=== PATIENT | female | born 1995 | race African-American/Black ===

== ENCOUNTER 2016-12-13 14:36 | Emergency (ER) | payer SELFPAY ==
[~2016-12-13] VITALS: Ht 152.4 cm; Wt 57.7 kg
[~2016-12-13 14:36] MED LIST: DICL75 PO
[2016-12-13 14:39] VITALS: BP 138/74; PULSE 105; RESP 15; TEMP 97.6; O2SAT 98
[2016-12-13 17:00] VITALS: PULSE 88
--- NOTE | 2016-12-13 17:03 | PD ---
HPI Chief Complaint: General Weakness Time Seen by Provider: 17:03 Travel History International Travel<30 days: No Contact w/Intl Traveler<30days: No Traveled to known affect area: No History of Present Illness HPI 21-year-old female presents to the emergency department with complaint of left thumb twitching and swelling to bilateral thenar eminences that started today. She said she felt lightheaded after eating and thought there was something wrong with her because her hands became swollen and hard to move her finger joints. Her lightheadedness has resolved. She denies focal deficits or weakness. Denies dizziness, syncope, headache. Denies fever, chills, nausea, vomiting. Denies change in vision. Denies focal deficits or weakness. Denies paresthesias, loss of sensation, decreased range of motion, decreased strength to all extremities. Denies difficulty with gait. Denies chest pain, shortness breath, abdominal pain, change in urine or stool. Has not taken any medications or tried any joints to alleviate her symptoms. Says she thinks she may be dehydrated needs to drink some Gatorade. No known allergies. Denies significant past medical history. Denies illicit drug use. No other modifying factors or associated signs and symptoms. History Past Medical Histgory LMP: NOV 2016 Social History Alcohol Use: Yes Tobacco Use: No Allergies-Medications (Allergen,Severity, Reaction): Coded Allergies: No Known Allergies (Unverified , 08/01/15) Reported Meds & Prescriptions Reported Meds & Active Scripts Active No Active Prescriptions or Reported Medications Review of Systems Except as stated in HPI: all other systems reviewed are Neg Physical Exam Narrative GENERAL: Well-nourished, well-developed female patient, in no acute distress SKIN: Warm and dry. HEAD: Atraumatic. Normocephalic. No facial droop noted. Tongue midline. EYES: Pupils equal and round at 4 mm with brisk reaction. No scleral icterus. No injection or drainage. PERRLA. EOMI. ENT: Mucosa pink and moist. Airway patent. NECK: Trachea midline. No lymphadenopathy. CARDIOVASCULAR: Regular rate and rhythm. No murmur appreciated. RESPIRATORY: No accessory muscle use. Clear to auscultation. Breath sounds equal bilaterally. GASTROINTESTINAL: Abdomen soft, non-tender, nondistended. Hepatic and splenic margins not palpable. Bowel sounds are active 4 quadrants. MUSCULOSKELETAL: Bilateral hands are without edema, tenderness on palpation, erythema; with full range of motion at all finger joints; full general assignment reporter strength. Bilateral upper extremities are supple and non-tense with 2+ radial pulses and sensory intact without erythema or edema. No obvious deformities. No clubbing. No cyanosis. No edema. Ambulatory with a normal gait. NEUROLOGICAL: Awake and alert. Oriented 3. No obvious cranial nerve deficits. Motor grossly within normal limits. Normal speech. No ataxia. No mid -line drift. Moves all extremities. 5/5 strength to all extremities. PSYCHIATRIC: Appropriate mood and affect; insight and judgment normal. Data Data Last Documented VS Vital Signs Date Time Temp Pulse Resp B/P Pulse Ox O2 Delivery O2 Flow Rate FiO2 12/13/16 17:00 88 12/13/16 14:39 97.6 15 138/74 98 MDM Medical Screen Exam Complete: Yes Emergency Medical Condition: No Differential Diagnosis Medical clearance, hand swelling, finger twitching Narrative Course 21-year-old female with unremarkable neuro exam and physical exam. Heart rate recheck on physical exam approximately 80-90 bpm. Vital signs are stable and the patient is stable for outpatient follow-up and treatment. The patient has no urgent or emergent medical complaints. There is no emergent or urgent medical need at this time. I instructed the patient to follow up with their primary care provider. A medical screening exam was performed: At the time of evaluation the presenting medical condition was determined not to be of an emergent nature. The patient was given the option of receiving additional care, but declined. Patient was given options for additional community resources from which to obtain care. The Patient Has Been advised to seek medical attention for their presenting complaint. The patient has been advised to return to the ER at any time if an emergent condition develops. Primary Impression: Encounter for medical screening examination Scripts No Active Prescriptions or Reported Meds Condition: Stable Jodi Bello Dec 13, 2016 17:03
== END 2016-12-13 17:09 | disposition left against medical advice (07) ==
LOC: NEPB 14:36
DX: M79.89 Other specified soft tissue disorders (principal); R42 Dizziness and giddiness
CPT/HCPCS: 99281